=== PATIENT | female | born 1965 | race Two or more races ===

== ENCOUNTER → 2018-04-07 | Outpatient (CLI) | payer BC ==
--- NOTE | 2018-04-07 18:35 | CT ---
EXAMINATION TYPE: CT chest wo con DATE OF EXAM: 04/07/2018 COMPARISON: NONE HISTORY: Injury to Left Upper Chest [address] DLP: 101.8 mGycm. Automated Exposure Control for Dose Reduction was Utilized. TECHNIQUE: CT scan of the thorax is performed without IV contrast. FINDINGS: LUNGS: The lungs are grossly clear, there is no concerning parenchymal mass or nodule identified. The re is no pleural effusion or pneumothorax. The tracheobronchial tree is patent. MEDIASTINUM: Lack of IV contrast is noted to limit evaluation for mediastinal and especially hilar ad enopathy. There are no definitive greater than 1 cm hilar or mediastinal lymph nodes. No cardiomegal y or pericardial effusion. Mediastinal and hilar examination unremarkable. OTHER: Skeletal structures are unremarkable. Visualized extrathoracic soft tissues are also unremarka ble. IMPRESSION: NEGATIVE EXAMINATION.
== END | disposition home or self-care (01) ==
LOC: RADCTMAIN 17:45
PROVIDERS: ATTEND Physician Assistant
DX: R07.89 Other chest pain (principal)
CPT/HCPCS: 71250

== ENCOUNTER → 2018-08-23 | Outpatient (CLI) | payer BC ==
--- NOTE | 2018-08-23 13:53 | NM ---
EXAMINATION TYPE: NM bone/joint limited DATE OF EXAM: 08/23/2018 COMPARISON: NONE HISTORY: Pain left hand TECHNIQUE: After the intravenous administration of 23.9 mCi Tc 99m MDP. Images acquired 3 hours pos t injection. Anterior posterior full body images were obtained. Multiple views of left hand are subm itted. FINDINGS: There is abnormal uptake involving the base of the first digit right foot. There also is abnormal upt joseph involving the proximal aspect of the carpal bones of the left hand near the level the radioulnar joint. IMPRESSION: 1. Nonspecific uptake which appears asymmetric involving the proximal carpal bones near the level the ulnar styloid. Correlate with x-ray to exclude fracture or intraosseous lesion. 2. Uptake involving the right foot is nonspecific and in an absence of history of recent trauma likel y chronic.
== END | disposition home or self-care (01) ==
LOC: RADNMMAIN 09:56
PROVIDERS: ATTEND Family Medicine
DX: R93.7 Abnormal findings on diagnostic imaging of other parts of musculoskeletal system (principal); M79.642 Pain in left hand
CPT/HCPCS: 78300; A9503

== ENCOUNTER → 2018-08-23 | Outpatient (CLI) | payer BC ==
--- NOTE | 2018-08-24 14:38 | MM ---
Reason for exam: screening (asymptomatic). Last mammogram was performed 2 years and 11 months ago. History: Patient has history of other cancer at age 26. Family history of breast cancer in aunt. Physical Findings: A clinical breast exam by your physician is recommended on an annual basis and results should be correlated with mammographic findings. MG Screening Mammo w CAD Bilateral CC and MLO view(s) were taken. Prior study comparison: September 25, 2015, bilateral MG screening mammo w CAD. December 07, 2011, bilateral digital screening mammo w/CAD. The breast tissue is heterogeneously dense. This may lower the sensitivity of mammography. No significant changes when compared with prior studies. ASSESSMENT: Negative, BI-RAD 1 RECOMMENDATION: Routine screening mammogram of both breasts in 1 year.
== END | disposition home or self-care (01) ==
LOC: RADMAMWWP 16:35
PROVIDERS: ATTEND Family Medicine
DX: Z12.31 Encounter for screening mammogram for malignant neoplasm of breast (principal)
CPT/HCPCS: 77067

== ENCOUNTER → 2019-10-24 | Outpatient (CLI) | payer BC ==
--- NOTE | 2019-10-24 10:47 | BD ---
EXAMINATION TYPE: Axial Bone Density DATE OF EXAM: 10/24/2019 COMPARISON: DEXA bone scan March 13, 2016. CLINICAL HISTORY: Height: 63 Weight: 103 FRAX RISK QUESTIONS: Alcohol (3 or more units per day): no Family History (Parent hip fracture): no Glucocorticoids (More than 3mos): no (Ex: prednisone, prednisolone, methylprednisolone, dexamethasone, and hydrocortisone). History of Fracture in Adulthood: no Secondary Osteoporosis: 1. Type 1 Diabetes: no 2. Hyperthyroidism: no 3. Menopause before 45: no 4. Malnutrition: no 5. Chronic liver disease: no Rheumatoid Arthritis: no Current Tobacco Use: no RISK FACTORS HISTORY OF: History of Wrist Fracture: yes, right When: as child Family History of Osteoporosis: no Active: yes Diet low in dairy products/other sources of calcium: no Postmenopausal woman: yes Take estrogen and/or progesterone medications: no Lost more than 2 inches in height since high school: no Frequent falls: no Poor Health: no Hyperparathyroidism: no Adrenal Insufficiency: no MEDICATIONS: Prednisone or other steroids: no Thyroid Medications:no Osteoporosis Medications:no Additional Medications: none Additional History: celiac patient has been working out on a "Skimbl" EXAM MEASUREMENTS: Bone mineral densitometry was performed using the [employer] System. Bone mineral density as measured about the Lumbar spine is: ----- L1-L4(G/cm2): 1.008 T Score Values are as follows: ----- L2: -1.4 ----- L3: -1.7 ----- L4: -1.3 ----- L1-L4: -1.4 Bone mineral density has: Decreased -3.1% since study of: 03/13/2016 Bone mineral density about the R hip (g/cm2): 0.546 Bone mineral density about the L hip (g/cm2): 0.530 T Score values are as follows: -----R Neck: -3.5 -----L Neck: -3.7 -----R Total: -3.3 -----L Total: -3.4 Bone mineral density has: Increased 39.2% since study of: 03/13/2016 IMPRESSION: Osteoporosis (T Score less than -2.5) redemonstrated in both. There is increased fracture risk and therapy is usually indicated based on age. Re-Screen 1-2 years. NOTE: T-SCORE=SD OF THE YOUNG ADULT MEAN.
== END | disposition home or self-care (01) ==
LOC: RADBDWWP 08:51
PROVIDERS: ATTEND Family Medicine
DX: M81.0 Age-related osteoporosis without current pathological fracture (principal)
CPT/HCPCS: 77080

== ENCOUNTER → 2019-11-21 | Outpatient (CLI) | payer BC ==
--- NOTE | 2019-11-23 13:23 | MM ---
Reason for exam: screening (asymptomatic). Last mammogram was performed 1 year and 3 months ago. History: Patient is postmenopausal and has history of other cancer at age 26. Family history of breast cancer in aunt. Took hormonal contraceptives for 5 years. Physical Findings: A clinical breast exam by your physician is recommended on an annual basis and results should be correlated with mammographic findings. MG Screening Mammo w CAD Bilateral CC and MLO view(s) were taken. Prior study comparison: August 23, 2018, bilateral MG screening mammo w CAD. September 25, 2015, bilateral MG screening mammo w CAD. The breast tissue is heterogeneously dense. This may lower the sensitivity of mammography. No suspicious abnormality on the left breast. 3mm anterior depth right asymmetry on CC only. ASSESSMENT: Incomplete: need additional imaging evaluation, BI-RAD 0 RECOMMENDATION: Special view mammogram of the right breast. If lesion persists on supplemental views, image directed ultrasound is recommended. [facility] will attempt to contact patient to return for supplemental views and ultrasound if indicated.
== END | disposition home or self-care (01) ==
LOC: RADMAMWWP 08:00
PROVIDERS: ATTEND Family Medicine
DX: Z12.31 Encounter for screening mammogram for malignant neoplasm of breast (principal)
CPT/HCPCS: 77067

== ENCOUNTER → 2019-11-29 | Outpatient (CLI) | payer BC ==
--- NOTE | 2019-11-29 09:57 | MM ---
Reason for exam: additional evaluation requested from abnormal screening. Last mammogram was performed less than 1 month ago. History: Patient is postmenopausal and has history of other cancer at age 26. Family history of breast cancer in aunt. Took hormonal contraceptives for 5 years. Physical Findings: Nurse did not find any significant physical abnormalities on exam. MG 3D Work Up W/Cad RT Spot compression CC and ML view(s) were taken of the right breast. Prior study comparison: November 21, 2019, bilateral MG screening mammo w CAD. August 23, 2018, bilateral MG screening mammo w CAD. There is no discrete abnormality including area of concern on compression. Possible stable density upper ML tomosynthesis but present 08/23/18. ASSESSMENT: Probably benign, BI-RAD 3 RECOMMENDATION: Follow-up diagnostic mammogram of the right breast in 6 months. With tomogram.
== END | disposition home or self-care (01) ==
LOC: RADMAMWWP 09:11
PROVIDERS: ATTEND Family Medicine
DX: R92.8 Other abnormal and inconclusive findings on diagnostic imaging of breast (principal)
CPT/HCPCS: 77061; 77065

== ENCOUNTER → 2020-05-17 | Outpatient (CLI) | payer BC ==
--- NOTE | 2020-05-17 13:48 | MM ---
Reason for exam: follow-up at short interval from prior study. Last mammogram was performed 6 months ago. History: Patient is postmenopausal and has history of other cancer at age 26. Family history of breast cancer in aunt. Took hormonal contraceptives for 5 years. Physical Findings: Nurse did not find any significant physical abnormalities on exam. MG 3D Diag Mammo W/Cad RT CC and MLO view(s) were taken of the right breast. Prior study comparison: November 29, 2019, right breast MG 3d work up w/cad RT. November 21, 2019, bilateral MG screening mammo w CAD. The breast tissue is extremely dense which could obscure a lesion on mammography. No significant new findings when compared with previous films. These results were verbally communicated with the patient and result sheet given to the patient on 05/17/20. ASSESSMENT: Benign, BI-RAD 2 RECOMMENDATION: Return to routine screening mammogram schedule for both breasts. Back on schedule.
== END | disposition home or self-care (01) ==
LOC: RADMAMWWP 13:00
PROVIDERS: ATTEND Family Medicine
DX: R92.8 Other abnormal and inconclusive findings on diagnostic imaging of breast (principal)
CPT/HCPCS: 77061; 77065

== ENCOUNTER → 2021-07-14 | Outpatient (CLI) | payer BC ==
[~2021-07-14] MED LIST: SODIUM CHLORIDE 0.9% 500 ML 500 ML in EMPTY BAG 1 BAG IV PRN; ZOLEDRONIC ACID 5 MG in SODIUM CHLORIDE 0.9% 100 ML IV NR
[2021-07-14 09:46] VITALS: BP 131/77; PULSE 54; RESP 16; TEMP 97.8
== END ==
LOC: PROCWHC3 09:22
PROVIDERS: ATTEND Internal Medicine
DX: M81.0 Age-related osteoporosis without current pathological fracture (principal)
CPT/HCPCS: 96365; J3489

== ENCOUNTER → 2022-01-07 | Outpatient (CLI) | payer BC ==
--- NOTE | 2022-01-08 14:15 | MM ---
Reason for exam: screening (asymptomatic). Last mammogram was performed 1 year and 8 months ago. History: Patient is postmenopausal and has history of other cancer at age 26. Family history of breast cancer in aunt. Took hormonal contraceptives for 5 years. Physical Findings: A clinical breast exam by your physician is recommended on an annual basis and results should be correlated with mammographic findings. MG 3D Screening Mammo W/Cad Bilateral CC and MLO view(s) were taken. XCCL view(s) were taken of the left breast. Prior study comparison: May 17, 2020, right breast MG 3d diag mammo w/cad RT. November 29, 2019, right breast MG 3d work up w/cad RT. The breast tissue is extremely dense which could obscure a lesion on mammography. There are benign appearing round calcifications in the right breast. There is no discrete abnormality. ASSESSMENT: Benign, BI-RAD 2 RECOMMENDATION: Routine screening mammogram of both breasts in 1 year.
== END | disposition home or self-care (01) ==
LOC: RADMAMWWP 07:55
PROVIDERS: ATTEND Family Medicine
DX: Z12.31 Encounter for screening mammogram for malignant neoplasm of breast (principal); Z80.3 Family history of malignant neoplasm of breast; Z78.0 Asymptomatic menopausal state
CPT/HCPCS: 77063; 77067

== ENCOUNTER → 2022-03-02 | Outpatient (CLI) | payer BC ==
--- NOTE | 2022-03-03 04:44 | MR ---
EXAMINATION TYPE: MR cervical spine wo con DATE OF EXAM: 03/02/2022 COMPARISON: None HISTORY: Neck pain and numbness down left arm for 6 months. Multiplanar multi echo imaging of the cervical spine without contrast. The cervical vertebra show fairly normal alignment. There is a minimal C4-5 subluxation. Disc spaces are normal. There is no compression fracture. Cervical spinal cord shows normal signal pattern. No ed yanira. There is no cervical spinal stenosis. Spinal canal measures 8.5 mm at C5-6 which is the narrowes t point. Brainstem is intact. Facet joints are intact. There is mild hypertrophic facet arthropathy. There is no cervical paraspinal mass. IMPRESSION: There is a minimal degenerative subluxation at C4-5. No spinal stenosis. No cervical disc herniation.
== END | disposition home or self-care (01) ==
LOC: RADMRIMAIN 15:25
PROVIDERS: ATTEND Orthopaedic Surgery
DX: S13.150A Subluxation of C4/C5 cervical vertebrae, initial encounter (principal); X58.XXXA Exposure to other specified factors, initial encounter
CPT/HCPCS: 72141

== ENCOUNTER → 2022-04-22 | Outpatient (CLI) | payer BC ==
[2022-04-22 10:16] VITALS: BP 96/56; PULSE 56; RESP 18; TEMP 98
--- NOTE | 2022-04-22 10:27 | P.CON ---
Consult Note - . Consult date: 04/22/22 Assessment/Plan:: HISTORY OF PRESENT ILLNESS: 56 yr old female as a referral from Dr Lr NPC presents today with severe and chronic cervical pain secondary to DDD and subluxation for evaluation. She states her pain is 5/10 in intensity in the lower aspect of her cervical spine, constant & stabbing in character with pain going up & down the spine. Pain is present since 08/2021. Pain is provoked with jarring, twisting or extension of the neck. Pain is relieved with PT from 09/2021 - 11/2021, chiropractic treatments in 08/2021, alternating heat and ice compresses, medications (Tylenol & Motrin), topical CBD oil which is ineffective, use of so ft cervical collar, repositioning and rest. PMH: Denies PSH: Denies SH: Negative x 3. and lives with spouse. FH: Noncontributory All: NKDA Meds: See list REVIEW OF ORGAN SYSTEMS: CONSTITUTIONAL: No fevers or chills. No recent weight loss. HEENT: No visual acuity loss, eye pain, difficulties with hearing. No nosebleeds. No difficulty swallowing. RESPIRATORY: Denies any troubles with breathing or dyspnea on exertion. CARDIOVASCULAR: Denies any chest pain, palpitations, or recent heart attacks. GASTROINTESTINAL: Denies fatty food intolerance. Has change in bowel habits and gas bloat. GENITOURINARY: Denies any blood in urine. Has increased urinary frequency. NEUROLOGICAL: + numbness and tingling along the distal extremities. No seizure disorders or headaches. MUSCULOSKELETAL: + back pain SKIN: No skin cancer. No rash. PSYCHIATRIC: Denies current depression or suicidal thoughts. ENDOCRINE: Denies current thyroid disorders. Denies any blood sugar glucose intolerance. HEME/LYMPHATIC: Denies any lumps and bumps around the neck. History of deep venous thrombosis. ALLERGY/IMMUNOLOGY: No immunoglobulin therapy. No immune deficiencies. BREAST: Denies current breast lumps, pain or nipple discharge. Physical Examinations : Constitutional : Cooperative , not in acute distress . HEENT: Neck supple. No Lymphadenopathy. Normal thyroid size . Eyes no ptosis , no icterus, no photophobia . Hearing intact. Normal oropharynx. No Thrush. Respiratory : Chest clear to auscultations bilaterally. No wheezing. No rhonchi. Cardiovascular : Regular rate and rhythm , S1 / S2. No S3 . No S4. Gastrointestinal : Abdomen soft. No tenderness. Bowel sounds x 4. No organomegaly . Genitourinary : Deferred. Neurologic : Cranial nerve II to XII intact. No focal neurological deficits. Psychiatric : alert & oriented x 3. Matching mood & appropriate affect. Judgment & insight intact. Lymphatic No Lymphadenopathy. Musculoskeletal : Cervical Spine Motor strength in the deltoid and biceps: Normal right side. Normal Left side Motor strength biceps and the wrist extensors: Normal right side . Normal left side Motor strength in the triceps muscle: Normal right side. Normal left side Deep tendon reflexes: Normal at the bi ceps. Normal at Brachioradialis. Normal at triceps Vertebral body tenderness to palpation over C4, C5, C6 Spurling test: positive Neck distraction test: positive Juan sign: positive bilaterally Lumbar spine Motor strength lower extremities ,thigh and legs 5/5 Right side , 5/5 Left side Deep tendon reflexes : Normal Knee Jerk. Normal Ankle Jerk Vertebral body tenderness over Lumbar facet Loading Test: positive Right / positive Left Range of motion of the lumbar spine Flexion 30 degrees, extension 10 degrees Straight Leg Raise test: Left/ Right positive at degree Rohini test: positive right / positive left. Severe tenderness over the Sacroiliac joint on the Right / Left sides Gaenslen test: positive bilaterally Seated flexion test: positive bilaterally. Sacral spine : Severe tenderness over the Sacroiliac joint: right side / left side Range of motion: Flexion of the lumbar spine <60 degrees Range of motion: Extension of the lumbar spine <20 degrees Gaenslen's Test positive Jose's Test positive Rohini test: positive right side / left side Thigh Thrust Test Sacral Thrust Test Imaging: MRI without contrast of the cervical spine from 03/02/22 reviewed Assessment/ Plan : Cervical DDD, Cervical subluxation C4-C5 Recommendation of NINA C4-C5. May need a series of injections, up to 3 within a 6 mo period, for optimal pain relief. Risks, benefits of procedure discussed and patient verbalized understanding. Denies aspirin or anti- coagulant use or medical history of diabetes. All questions answered. I have spent greater than 50 minutes on patient care today. Dr Ayon was available by phone for the evaluation of this patient. The time was used to review the medical records including relevant urine studies and Prescription history (MAPs), review of the available imaging, evaluation and examination of the patient, coordination of care with the medical staff and if applicable referring physicians, as well as creation of the medical record PQRS Measure Charge Sheet Mode of Arrival: Ambulatory - Pain Location Left Lower Neck Non-Pharmacological Interventions: Chiropractic Treatment, Heat, Ice, Inactivity, Physical Therapy, Position/Reposition Pharmacological Interventions: PRN Medication, Topical Medication PQRS Narrative: Blood Pressure 96/56 Pain Intensity [Left Lower 5 Neck] Scale Used Numeric (1 - 10) Home Medications: Ambulatory Orders Alendronate Sodium/Vitamin D3 [Fosamax Plus D 70 mg-2,800 Iu] 1 tab PO WEEKLY 07/14/21 Multivitamin [Multivitamins Adult Gummies] 1 tab PO DAILY 07/14/21
== END ==
LOC: PNWHC3 09:45
PROVIDERS: ATTEND Specialist
DX: M50.10 Cervical disc disorder with radiculopathy, unspecified cervical region (principal)
CPT/HCPCS: 99211

== ENCOUNTER → 2024-01-10 | Outpatient (CLI) | payer BC ==
--- NOTE | 2024-01-11 22:09 | MM ---
Reason for Exam: Screening (asymptomatic). Last screening mammogram was performed 12 month(s) ago. Patient History: Menarche at age 13. First Full-Term at age 24. Left ovary removed at age 26. Hysterectomy at age 26. Postmenopausal. Other cancer, age 26. Patient used Hormonal Contraceptives for 5 years. Maternal aunt had breast cancer, age 55. Risk Values: Alta 5 year model risk: 1.4%. NCI Lifetime model risk: 7.6%. Prior Study Comparison: 05/17/2020 Right Diagnostic Mammogram, [facility]. 01/07/2022 Bilateral Screening Mammogram, [facility]. 01/08/2023 Bilateral MG 3D screening mammo w/cad, [facility]. Tissue Density: The breast tissue is extremely dense which could obscure a lesion on mammography. Findings: Analyzed By CAD. There is no suspicious group of microcalcifications or new suspicious mass in either breast. Overall Assessment: Negative, BI-RAD 1 Management: Screening Mammogram of both breasts in 1 year. . Patient should continue monthly self-breast exams. A clinical breast exam by your physician is recommended on an annual basis. This exam should not preclude additional follow-up of suspicious palpable abnormalities. Note on Alta scores and lifetime risk: 1. A Alta score greater than 3% is considered moderate risk. If this is the case, consider specialist referral to assess eligibility for a risk reducing agent. 2. If overall lifetime risk for the development of breast cancer is 20% or higher, the patient may qualify for future screening with alternating mammogram and breast MRI. Electronically signed and approved by: Janes Ramirez M.D. Radiologist
== END | disposition home or self-care (01) ==
LOC: RADMAMWWP 08:30
PROVIDERS: ATTEND Family Medicine
DX: Z12.31 Encounter for screening mammogram for malignant neoplasm of breast (principal); Z78.0 Asymptomatic menopausal state; Z80.3 Family history of malignant neoplasm of breast
CPT/HCPCS: 77063; 77067

== ENCOUNTER → 2025-03-19 | Outpatient (CLI) | payer BC ==
--- NOTE | 2025-03-19 09:44 | MM ---
Reason for Exam: Screening (asymptomatic). Last mammogram was performed 1 year(s) and 2 month(s) ago. Patient History: Menarche at age 13. First Full-Term at age 24. Left ovary removed at age 26. Hysterectomy at age 26. Postmenopausal. Other cancer, age 26. Patient used Hormonal Contraceptives for 5 years. Maternal aunt had breast cancer, age 55. Risk Values: Alta 5 year model risk: 1.5%. NCI Lifetime model risk: 7.4%. Prior Study Comparison: 08/23/2018 Bilateral Screening Mammogram, [facility]. 11/21/2019 Bilateral Screening Mammogram, [facility]. 11/29/2019 Right Diagnostic Mammogram, [facility]. 05/17/2020 Right Diagnostic Mammogram, [facility]. 01/07/2022 Bilateral Screening Mammogram, [facility]. 01/08/2023 Bilateral MG 3D screening mammo w/cad, [facility]. 01/10/2024 Bilateral MG 3D screening mammo w/cad, [facility]. Tissue Density: The breasts are extremely dense, which lowers the sensitivity of mammography. Findings: Analyzed By CAD. There is no suspicious new group of microcalcifications or new suspicious mass in either breast. Overall Assessment: Negative, BI-RAD 1 Management: Screening Mammogram of both breasts in 1 year. Some advise bilateral breast ultrasound surveillance in patients with background extremely dense tissue. Patient should continue monthly self-breast exams. A clinical breast exam by your physician is recommended on an annual basis. This exam should not preclude additional follow-up of suspicious palpable abnormalities. Note on Alta scores and lifetime risk: 1. A Alta score greater than 3% is considered moderate risk. If this is the case, consider specialist referral to assess eligibility for a risk reducing agent. 2. If overall lifetime risk for the development of breast cancer is 20% or higher, the patient may qualify for future screening with alternating mammogram and breast MRI. [facility], , 03/19/2025 9:41 AM. Electronically signed and approved by: Ashish Jama M.D.
== END | disposition home or self-care (01) ==
LOC: RADMAMWWP 08:22
PROVIDERS: ATTEND Family Medicine
DX: Z12.31 Encounter for screening mammogram for malignant neoplasm of breast (principal); R92.343 Mammographic extreme density, bilateral breasts; Z80.3 Family history of malignant neoplasm of breast; Z92.0 Personal history of contraception; Z78.0 Asymptomatic menopausal state
CPT/HCPCS: 77063; 77067